=== PATIENT | male | born 1965 | race Hispanic/Latino ===

== ENCOUNTER 2019-07-30 17:49 | Observation (INO) | payer OTHER ==
[2019-07-30 21:28] LABS: Basophils # (Auto) 0.1 K/mm3 (0.0-0.1); Basophils % (Auto) 1.3 % (0.0-1.8); Eosinophils # (Auto) 0.1 K/mm3 (0.0-0.4); Eosinophils % (Auto) 0.9 % (0.0-4.3); Hematocrit 43.8 % (35.5-45.6); Hemoglobin 14.6 gm/dl (11.8-15.2); Lymphocytes # (Auto) 2.2 K/mm3 (1.2-5.4); Lymphocytes % (Auto) 21.8 % (13.4-35.0); Mean Corpuscular HGB Conc 33 % (32-34); Mean Corpuscular Volume 86 fl (84-94); Monocytes # (Auto) 0.5 K/mm3 (0.0-0.8); Monocytes % (Auto) 5.1 % (0.0-7.3); Platelet Count 247 K/mm3 (140-440); Red Blood Count 5.11 M/mm3 (3.65-5.03); Red Cell Distribution Width 14.5 % (13.2-15.2)
[2019-07-30 21:43] LABS: INR 0.97 (0.87-1.13)
[2019-07-30 21:44] LABS: Partial Thromboplastin Time 27.5 Sec. (24.2-36.6)
[2019-07-30 21:57] LABS: Alanine Aminotransferase 30 units/L (7-56); Albumin 4.7 g/dL (3.9-5); BUN/Creatinine Ratio 14; Blood Urea Nitrogen 11 mg/dL (9-20); Calcium 9.8 mg/dL (8.4-10.2); Hemolysis Index 11
--- NOTE | 2019-07-30 22:53 | XRay Report ---
CHEST 2 VIEWS INDICATION / CLINICAL INFORMATION: Chest Pain. COMPARISON: None available. FINDINGS: SUPPORT DEVICES: None. HEART / MEDIASTINUM: No significant abnormality. LUNGS / PLEURA: No significant pulmonary or pleural abnormality. No pneumothorax. ADDITIONAL FINDINGS: No significant additional findings. IMPRESSION: 1. No significant abnormality. Signer Name: Stephanie Miranda MD Signed: 07/30/2019 10:49 PM Workstation Name: [id number]
[2019-07-30] MEDS ORDERED: ONDANSETRON 4 MG/2 ML INJ IV ONE (23:14)
[2019-07-30] MEDS ORDERED: MORPHINE 4 MG/1 ML INJ IV ONE (23:14)
--- NOTE | 2019-07-30 23:14 | Emergency Department Report ---
ED General Adult HPI - General Chief complaint: Chest Pain Stated complaint: CHEST PAIN Time Seen by Provider: 07/30/19 20:49 Source: patient, EMS Mode of arrival: Stretcher Limitations: No Limitations - History of Present Illness Initial comments: The patient presents to the emergency department with a chief complaint of left- sided chest pain that started 3 hours prior to arrival. Patient describes the pain as a pressure-like sensation as if someone is sitting on his chest. Patient received nitro in route via EMS to no avail. Patient denies any shortness of breath. -: Sudden Location: chest Severity scale (0 -10): 8 Quality: other (pressure) Consistency: constant Improves with: none Worsens with: none Associated Symptoms: denies other symptoms Treatments Prior to Arrival: none - Related Data Allergies Allergy/AdvReac Type Severity Reaction Status Date / Time aspirin Allergy Hives Verified 07/30/19 20:04 Sulfa (Sulfonamide Allergy Hives Verified 07/30/19 20:04 Antibiotics) ED Review of Systems ROS: Stated complaint: CHEST PAIN Other details as noted in HPI Comment: All other systems reviewed and negative Constitutional: denies: chills, fever Eyes: denies: eye pain, eye discharge, vision change ENT: denies: ear pain, throat pain Respiratory: denies: cough, shortness of breath, wheezing Cardiovascular: chest pain. denies: palpitations Endocrine: no symptoms reported Gastrointestinal: denies: abdominal pain, nausea, diarrhea Genitourinary: denies: urgency, dysuria Musculoskeletal: denies: back pain, joint swelling, arthralgia Skin: denies: rash, lesions Neurological: denies: headache, weakness, paresthesias Psychiatric: denies: anxiety, depression Hematological/Lymphatic: denies: easy bleeding, easy bruising ED Past Medical Hx - Past Medical History Previous Medical History?: Yes Hx Hypertension: Yes Hx Diabetes: Yes Hx Headaches / Migraines: Yes (possibly) Hx Asthma: Yes - Surgical History Past Surgical History?: Yes Hx Cholecystectomy: Yes Additional Surgical History: Bilat shoulders - Social History Smoking Status: Never Smoker ED Physical Exam - General Limitations: No Limitations General appearance: alert, in no apparent distress - Head Head exam: Present: atraumatic, normocephalic - Eye Eye exam: Present: normal appearance, PERRL, EOMI - ENT ENT exam: Present: mucous membranes moist - Neck Neck exam: Present: normal inspection - Respiratory Respiratory exam: Present: normal lung sounds bilaterally. Absent: respiratory distress - Cardiovascular Cardiovascular Exam: Present: regular rate, normal rhythm. Absent: systolic murmur, diastolic murmur, rubs, gallop - GI/Abdominal GI/Abdominal exam: Present: soft, normal bowel sounds. Absent: distended, tenderness - Rectal Rectal exam: Present: deferred - Extremities Exam Extremities exam: Present: normal inspection - Back Exam Back exam: Present: normal inspection - Neurological Exam Neurological exam: Present: alert, oriented X3, CN II-XII intact. Absent: motor sensory deficit - Psychiatric Psychiatric exam: Present: normal affect, normal mood - Skin Skin exam: Present: warm, dry, intact, normal color. Absent: rash ED Course Vital Signs 07/30/19 07/30/19 07/30/19 19:34 20:06 21:00 Temperature 98.7 F Pulse Rate 66 67 69 Respiratory 20 15 17 Rate Blood Pressure 120/78 143/75 O2 Sat by Pulse 99 95 97 Oximetry 07/30/19 07/30/19 22:00 23:00 Temperature Pulse Rate 69 Respiratory 11 L Rate Blood Pressure 143/75 118/75 O2 Sat by Pulse 97 97 Oximetry ED Medical Decision Making - Lab Data Result diagrams: 07/30/19 21:09 07/30/19 21:09 Lab Results 07/30/19 07/30/19 07/30/19 Range/Units 21:09 21:09 21:09 WBC 10.1 (4.5-11.0) K/mm3 RBC 5.11 H (3.65-5.03) M/mm3 Hgb 14.6 (11.8-15.2) gm/dl Hct 43.8 (35.5-45.6) % MCV 86 (84-94) fl MCH 29 (28-32) pg MCHC 33 (32-34) % RDW 14.5 (13.2-15.2) % Plt Count 247 (140-440) K/mm3 Lymph % (Auto) 21.8 (13.4-35.0) % King[place]isher % (Auto) 5.1 (0.0-7.3) % Eos % (Auto) 0.9 (0.0-4.3) % Baso % (Auto) 1.3 (0.0-1.8) % Lymph # 2.2 (1.2-5.4) K/mm3 King[place]isher # 0.5 (0.0-0.8) K/mm3 Eos # 0.1 (0.0-0.4) K/mm3 Baso # 0.1 (0.0-0.1) K/mm3 Seg Neutrophils % 70.9 H (40.0-70.0) % Seg Neutrophils # 7.2 (1.8-7.7) K/mm3 PT 13.0 (12.2-14.9) Sec. INR 0.97 (0.87-1.13) APTT 27.5 (24.2-36.6) Sec. Sodium 139 (137-145) mmol/L Potassium 4.3 (3.6-5.0) mmol/L Chloride 100.6 (98-107) mmol/L Carbon Dioxide 21 L (22-30) mmol/L Anion Gap 22 mmol/L BUN 11 (9-20) mg/dL Creatinine 0.8 (0.8-1.5) mg/dL Estimated GFR > 60 ml/min BUN/Creatinine Ratio 14 % Glucose 118 H (75-100) mg/dL Calcium 9.8 (8.4-10.2) mg/dL Total Bilirubin 0.30 (0.1-1.2) mg/dL AST 19 (5-40) units/L ALT 30 (7-56) units/L Alkaline Phosphatase 69 (35-129) units/L Troponin T < 0.010 (0.00-0.029) ng/mL NT-Pro-B Natriuret Pep (0-900) pg/mL Total Protein 7.3 (6.3-8.2) g/dL Albumin 4.7 (3.9-5) g/dL Albumin/Globulin Ratio 1.8 % 07/30/19 Range/Units 21:09 WBC (4.5-11.0) K/mm3 RBC (3.65-5.03) M/mm3 Hgb (11.8-15.2) gm/dl Hct (35.5-45.6) % MCV (84-94) fl MCH (28-32) pg MCHC (32-34) % RDW (13.2-15.2) % Plt Count (140-440) K/mm3 Lymph % (Auto) (13.4-35.0) % King[place]isher % (Auto) (0.0-7.3) % Eos % (Auto) (0.0-4.3) % Baso % (Auto) (0.0-1.8) % Lymph # (1.2-5.4) K/mm3 King[place]isher # (0.0-0.8) K/mm3 Eos # (0.0-0.4) K/mm3 Baso # (0.0-0.1) K/mm3 Seg Neutrophils % (40.0-70.0) % Seg Neutrophils # (1.8-7.7) K/mm3 PT (12.2-14.9) Sec. INR (0.87-1.13) APTT (24.2-36.6) Sec. Sodium (137-145) mmol/L Potassium (3.6-5.0) mmol/L Chloride (98-107) mmol/L Carbon Dioxide (22-30) mmol/L Anion Gap mmol/L BUN (9-20) mg/dL Creatinine (0.8-1.5) mg/dL Estimated GFR ml/min BUN/Creatinine Ratio % Glucose (75-100) mg/dL Calcium (8.4-10.2) mg/dL Total Bilirubin (0.1-1.2) mg/dL AST (5-40) units/L ALT (7-56) units/L Alkaline Phosphatase (35-129) units/L Troponin T (0.00-0.029) ng/mL NT-Pro-B Natriuret Pep 60.65 (0-900) pg/mL Total Protein (6.3-8.2) g/dL Albumin (3.9-5) g/dL Albumin/Globulin Ratio % - EKG Data -: EKG Interpreted by Ar EKG shows normal: sinus rhythm Rate: normal - Medical Decision Making Received the patient's cath report from [facility] which was done on March 05, 2018 which shows a left main artery 0% occlusion, proximal left anterior descending artery is 0% occlusion, mid distal left anterior descending artery diagonal artery 0% occlusion, circumflex/obtuse marginal artery 0%, right coronary artery 0%, coronary dominance is right. Left ventricular EF is 50% Critical care attestation.: If time is entered above; I have spent that time in minutes in the direct care of this critically ill patient, excluding procedure time. ED Disposition Clinical Impression: Chest pain Disposition: 09 OP ADMIT IP TO THIS HOSP Is pt being admited?: Yes Does the pt Need Aspirin: Yes Condition: Fair Instructions: Chest Pain (ED) Referrals: MARGARET TERRAZAS MD [Primary Care Provider] - 3-5 Days
--- NOTE | 2019-07-30 23:40 | History and Physical Report ---
History of Present Illness History of present illness: 54-year-old man with a history of hypertension, diabetes, asthma, obesity comes emergency room with complaints of chest pain located in the epigastric area that started today. He describes the pain as sharp, pressure-like sensation, someone sitting on his chest that has been constant, intensity 5/10, radiating to the left arm, cannot identify exacerbating factor. Admits to nausea, shortness., No diaphoresis or palpitation Review Of Systems: Constitutional: no weight loss, fever, chills Ears, eyes, nose, mouth and throat: no nasal congestion, no nasal discharge, no sinus pressure, blurry vision, diplopia Neck: No neck pain or rigidity. Cardiovascular: No palpitations Respiratory: Nocough Gastrointestinal: No hematochezia Genitourinary : no dysuria, frequency Musculoskeletal: no muscle ache , joint pain Integumentary: no rash, no pruritis Neurological: no parathesias, focal weakness Endocrine: no cold or heat intolerance, no polyuria or polydipsia Hematologic/Lymphatic: no easy bruising, no easy bleeding, no gland swelling Allergic/Immunologic: no urticaria, no angioedema. PAST MEDICAL HISTORY: hypertension, diabetes, asthma, obesity PAST SURGICAL HISTORY: Cholecystectomy, bilateral shoulder SOCIAL HISTORY: Denies alcohol, tobacco, drugs FAMILY HISTORY: Hypertension Medications and Allergies Allergies Allergy/AdvReac Type Severity Reaction Status Date / Time aspirin Allergy Hives Verified 07/30/19 20:04 Sulfa (Sulfonamide Allergy Hives Verified 07/30/19 20:04 Antibiotics) Exam - Physical Exam Narrative exam: Gen. appearance: Patient lying in bed, no apparent distress HEENT: Normocephalic, atraumatic, pupils equally round and reactive to light, extraocular movement intact, and no sclericterus,. No JVD or thyromegaly or nodule,neck supple, no carotid bruit ,mucous membranes moist, no exudate or erythema Heart: S1, S2, regular rate and rhythm Lungs: Clear bilaterally, breathing comfortable Abdomen: Positive bowel sounds, nontender, nondistended, no organomegaly Extremity: no edema, cyanosis, clubbing Skin: No rash, nodules, warm, dry Neuro: speech is fluent, moves extremities, sensory intact - Constitutional Vitals: Temp Pulse Resp BP Pulse Ox 98.7 F 69 11 L 118/75 97 07/30/19 19:34 07/30/19 22:00 07/30/19 22:00 07/30/19 23:00 07/30/19 23:00 Results - Labs CBC & Chem 7: 07/30/19 21:09 07/30/19 21:09 Labs: Abnormal lab results 07/30/19 07/30/19 Range/Units 21:09 21:09 RBC 5.11 H (3.65-5.03) M/mm3 Seg Neutrophils % 70.9 H (40.0-70.0) % Carbon Dioxide 21 L (22-30) mmol/L Glucose 118 H (75-100) mg/dL - Imaging and Cardiology EKG: image reviewed Chest x-ray: report reviewed Abdominal x-ray: pending Assessment and Plan Assessment Chest pain, rule out ACS Check cardiac enzymes, obtain stress test Start Percocet Hypertension Continue outpatient medications, add IV hydralazine Diabetes Checks fingersticks, start sliding scale DVT prophylaxis
[2019-07-31] MEDS ORDERED: ONDANSETRON 4 MG/2 ML INJ ONE (00:27)
[2019-07-31] MEDS ORDERED: MORPHINE 4 MG/1 ML INJ ONE (00:27)
[2019-07-31] MEDS ORDERED: MORPHINE 2 MG/1 ML INJ IV PRN (01:02)
[2019-07-31] MEDS ORDERED: ACETAMINOPHEN 325 MG TAB PO PRN (01:02)
[2019-07-31] MEDS ORDERED: DEXTROSE 50% IN WATER (25GM) 50 ML SYRINGE IV PRN (01:02)
[2019-07-31] MEDS ORDERED: ONDANSETRON 4 MG/2 ML INJ IV PRN (01:02)
[2019-07-31] MEDS ORDERED: hydrALAZINE 20 MG/1 ML INJ IV PRN (01:07)
[2019-07-31 01:52] LABS: Creatine Kinase MB 2.6 ng/mL (0.0-4.0)
[2019-07-31 02:03] LABS: Amphetamine Screen,Urine PRESUMPTIVE NEGATIVE; Benzodiazepines Screen,Urine PRESUMPTIVE NEGATIVE; Cannabinoid Screen,Urine PRESUMPTIVE NEGATIVE; Cocaine Screen,Urine PRESUMPTIVE NEGATIVE; Methadone Screen,Urine PRESUMPTIVE NEGATIVE; Opiate Screen,Urine PRESUMPTIVE NEGATIVE
[2019-07-31 06:40] LABS: Basophils # (Auto) 0.1 K/mm3 (0.0-0.1); Basophils % (Auto) 0.6 % (0.0-1.8); Eosinophils # (Auto) 0.1 K/mm3 (0.0-0.4); Eosinophils % (Auto) 1.5 % (0.0-4.3); Hematocrit 41.8 % (35.5-45.6); Hemoglobin 13.9 gm/dl (11.8-15.2); Lymphocytes # (Auto) 2.5 K/mm3 (1.2-5.4); Lymphocytes % (Auto) 30.7 % (13.4-35.0); Mean Corpuscular HGB Conc 33 % (32-34); Mean Corpuscular Volume 87 fl (84-94); Monocytes # (Auto) 0.7 K/mm3 (0.0-0.8); Monocytes % (Auto) 8.2 % (0.0-7.3); Platelet Count 200 K/mm3 (140-440); Red Blood Count 4.83 M/mm3 (3.65-5.03)
[2019-07-31 06:55] LABS: Creatine Kinase MB 2.7 ng/mL (0.0-4.0)
[2019-07-31 06:56] LABS: BUN/Creatinine Ratio 12; Blood Urea Nitrogen 12 mg/dL (9-20); Calcium 9.3 mg/dL (8.4-10.2); Hemolysis Index 30
[2019-07-31] MEDS ORDERED: REGADENOSON 0.4 MG/5 ML INJ IV ONE ×2 (07:16→07:25)
[2019-07-31] MEDS: INSULIN LISPRO 100 UNIT/ML SUB-Q SCH ×2 (07:30→11:30)
[2019-07-31] MEDS ORDERED: ENOXAPARIN 40 MG/0.4 ML INJ SUB-Q SCH (10:00)
--- NOTE | 2019-07-31 10:29 | Progress Note ---
Assessment and Plan Assessment and plan: Chest pain, rule out ACS Check cardiac enzymes, obtain stress test Start Percocet Hypertension Continue outpatient medications, add IV hydralazine Diabetes Checks fingersticks, start sliding scale DVT prop Hospitalist Physical - Constitutional Vitals: Temp Pulse Resp BP Pulse Ox 96.6 F L 70 12 135/77 97 07/31/19 08:17 07/31/19 08:30 07/31/19 08:17 07/31/19 08:17 07/31/19 08:17 Results - Labs CBC & Chem 7: 07/31/19 05:48 07/31/19 05:48 Labs: Laboratory Last Values WBC 8.2 K/mm3 (4.5-11.0) 07/31/19 05:48 RBC 4.83 M/mm3 (3.65-5.03) 07/31/19 05:48 Hgb 13.9 gm/dl (11.8-15.2) 07/31/19 05:48 Hct 41.8 % (35.5-45.6) 07/31/19 05:48 MCV 87 fl (84-94) 07/31/19 05:48 MCH 29 pg (28-32) 07/31/19 05:48 MCHC 33 % (32-34) 07/31/19 05:48 RDW 15.0 % (13.2-15.2) 07/31/19 05:48 Plt Count 200 K/mm3 (140-440) 07/31/19 05:48 Lymph % (Auto) 30.7 % (13.4-35.0) 07/31/19 05:48 Grand % (Auto) 8.2 % (0.0-7.3) H 07/31/19 05:48 Eos % (Auto) 1.5 % (0.0-4.3) 07/31/19 05:48 Baso % (Auto) 0.6 % (0.0-1.8) 07/31/19 05:48 Lymph # 2.5 K/mm3 (1.2-5.4) 07/31/19 05:48 Grand # 0.7 K/mm3 (0.0-0.8) 07/31/19 05:48 Eos # 0.1 K/mm3 (0.0-0.4) 07/31/19 05:48 Baso # 0.1 K/mm3 (0.0-0.1) 07/31/19 05:48 Seg Neutrophils % 59.0 % (40.0-70.0) 07/31/19 05:48 Seg Neutrophils # 4.8 K/mm3 (1.8-7.7) 07/31/19 05:48 PT 13.0 Sec. (12.2-14.9) 07/30/19 21:09 INR 0.97 (0.87-1.13) 07/30/19 21:09 APTT 27.5 Sec. (24.2-36.6) 07/30/19 21:09 Sodium 138 mmol/L (137-145) 07/31/19 05:48 Potassium 4.4 mmol/L (3.6-5.0) 07/31/19 05:48 Chloride 99.7 mmol/L (98-107) 07/31/19 05:48 Carbon Dioxide 27 mmol/L (22-30) 07/31/19 05:48 Anion Gap 16 mmol/L 07/31/19 05:48 BUN 12 mg/dL (9-20) 07/31/19 05:48 Creatinine 1.0 mg/dL (0.8-1.5) 07/31/19 05:48 Estimated GFR > 60 ml/min 07/31/19 05:48 BUN/Creatinine Ratio 12 % 07/31/19 05:48 Glucose 113 mg/dL (75-100) H 07/31/19 05:48 Calcium 9.3 mg/dL (8.4-10.2) 07/31/19 05:48 Total Bilirubin 0.30 mg/dL (0.1-1.2) 07/30/19 21:09 AST 19 units/L (5-40) 07/30/19 21:09 ALT 30 units/L (7-56) 07/30/19 21:09 Alkaline Phosphatase 69 units/L (35-129) 07/30/19 21:09 Total Creatine Kinase 138 units/L (55-170) 07/31/19 05:48 CK-MB (CK-2) 2.7 ng/mL (0.0-4.0) 07/31/19 05:48 CK-MB (CK-2) Rel Index 1.9 (0-4) 07/31/19 05:48 Troponin T < 0.010 ng/mL (0.00-0.029) 07/31/19 05:48 NT-Pro-B Natriuret Pep 60.65 pg/mL (0-900) 07/30/19 21:09 Total Protein 7.3 g/dL (6.3-8.2) 07/30/19 21:09 Albumin 4.7 g/dL (3.9-5) 07/30/19 21:09 Albumin/Globulin Ratio 1.8 % 07/30/19 21:09 Urine Opiates Screen Presumptive negative 07/31/19 01:17 Urine Methadone Screen Presumptive negative 07/31/19 01:17 Ur Barbiturates Screen Presumptive positive 07/31/19 01:17 Ur Phencyclidine Scrn Presumptive negative 07/31/19 01:17 Ur Amphetamines Screen Presumptive negative 07/31/19 01:17 U Benzodiazepines Scrn Presumptive negative 07/31/19 01:17 Urine Cocaine Screen Presumptive negative 07/31/19 01:17 U Marijuana (THC) Screen Presumptive negative 07/31/19 01:17 Drugs of Abuse Note Disclamer 07/31/19 01:17 Mccarty/IV: Voiding Method Toilet IV Catheter Type [Right Hand] INT / Saline Lock Active Medications - Current Medications Current Medications: Generic Name Dose Route Start Last Admin Trade Name Freq PRN Reason Stop Dose Admin Acetaminophen 650 mg 07/31/19 01:02 Tylenol PO Q4H PRN Pain MILD(1-3)/Fever >100.5/POWELL Dextrose 0 ml 07/31/19 01:02 D50w (25gm) Syringe IV Q30MIN PRN Hypoglycemia Protocol Enoxaparin Sodium 40 mg 07/31/19 10:00 Enoxaparin SUB-Q QDAY GUERDA Hydralazine HCl 5 mg 07/31/19 01:07 Apresoline IV Q6H PRN Hypertension Insulin Human Lispro 0 unit 07/31/19 07:30 Humalog SUB-Q ACHS GUERDA Protocol Morphine Sulfate 2 mg 07/31/19 01:02 Morphine IV Q4H PRN Pain, Moderate (4-6) Ondansetron HCl 4 mg 07/31/19 01:02 Zofran IV Q8H PRN Nausea And Vomiting Sodium Chloride 10 ml 07/31/19 10:00 Sodium Chloride Flush Syringe 10 Ml IV BID GUERDA Sodium Chloride 10 ml 07/31/19 01:02 Sodium Chloride Flush Syringe 10 Ml IV PRN PRN LINE FLUSH
[2019-07-31 10:59] VITALS: BP 114/60
[2019-07-31] MEDS ORDERED: oxyCODONE /ACETAMINOPHEN 5-325MG TAB PO PRN (12:15)
--- NOTE | 2019-07-31 15:04 | Discharge Summary ---
Providers - Providers Date of Admission: 07/30/19 23:39 Date of discharge: 07/31/19 Attending physician: JANY YEH [facility] Reason for admission: Chest pain Condition: Fair Pertinent studies: Chest x-ray; no acute abnormality Procedures: Stress test; negative for ischemia, normal EF Hospital course: 54-year-old man with a history of hypertension, diabetes, asthma, obesity comes emergency room with complaints of chest pain located in the epigastric area that started today. He describes the pain as sharp, pressure-like sensation, someone sitting on his chest that has been constant, intensity 5/10, radiating to the left arm, cannot identify exacerbating factor. Admits to nausea, shortness., No diaphoresis or palpitation. Patient was admitted managed appropriately, serial cardiac enzymes x3- Blood pressures blood sugars closely monitored medications optimized Subsequently underwent stress test which was negative for ischemia Patient's chest pain probably noncardiac secondary to GERD Advised Protonix, follow-up with PMD and cardiology as needed Stable at discharge Discharge diagnosis; And management; --Atypical chest pain; probably noncardiac Stress test negative, symptoms improved Probably secondary to GERD --GERD; probably the cause of chest pain; stress test negative Recommend Protonix --Hypertension; moderate control Continue current antihypertensives and PRN medications --Type 2 diabetes mellitus; Accu-Chek sliding scale coverage ADA diet Continue metformin as before --Dyslipidemia; on statin Advised low-cholesterol diet --History of migraine headaches; patient follows with neurologist Continue home medications --History of depression; denies suicidal thoughts or ideation Continue Zoloft --Morbid obesity; BMI 47.3 Counseling done, advised dietary modification, exercise as tolerated And weight reduction when medically stable Patient is hemodynamically and clinically stable at discharge Disposition: DC-01 TO HOME OR SELFCARE Time spent for discharge: 32 min Core Measure Documentation - Palliative Care Palliative Care/ Comfort Measures: Not Applicable - Core Measures Any of the following diagnoses?: none Exam - Constitutional Vitals: Temp Pulse Resp BP Pulse Ox 96.6 F L 70 20 114/60 97 07/31/19 08:17 07/31/19 08:30 07/31/19 12:48 07/31/19 10:38 07/31/19 08:17 General appearance: Present: no acute distress, well-nourished - EENT Eyes: Present: PERRL, EOM intact - Neck Neck: Present: supple, normal ROM - Respiratory Respiratory effort: normal Respiratory: bilateral: diminished, negative: rales, rhonchi, wheezing - Cardiovascular Rhythm: regular Heart Sounds: Present: S1 & S2 - Extremities Extremities: no ischemia, No edema - Abdominal General gastrointestinal: Present: soft, non-tender, non-distended, normal bowel sounds - Integumentary Integumentary: Present: clear, warm - Musculoskeletal Musculoskeletal: strength equal bilaterally - Psychiatric Psychiatric: appropriate mood/affect, cooperative - Neurologic Neurologic: CNII-XII intact, moves all extremities Plan Activity: advance as tolerated Diet: diabetic Additional Instructions: If you continue to have intermittent chest pain or shortness of breath, contact MD or go to emergency room. You may need to see juan j dent beef tagger for further evaluation and management Follow up with: CARMENCITA [facility] MD BAKARI [Primary Care Provider] - 3-5 Days SHANTEL HARTMAN MD [Staff Physician] - 7 Days Prescriptions: Pantoprazole [Protonix] 40 mg PO QDAY #15 tablet
--- NOTE | 2019-07-31 15:57 | Treadmill Report ---
THALLIUM STRESS TEST REPORT LEFT VENTRICLE: Left ventricular chamber size is within normal limits. Perfusion study demonstrates somewhat heterogeneous uptake of the tracer in all segments, but no perfusion defects identified. Gated analysis demonstrates normal left ventricular systolic function with ejection fraction 60%. CONCLUSION: Suboptimal perfusion study, with no demonstrable ischemic coronary disease. Clinical correlation is recommended. JOB# [id number] CA/NTS
== END 2019-07-31 16:35 | disposition home or self-care (01) ==
LOC: ED 17:49 → 4A 23:39
PROVIDERS: ADMIT Internal Medicine; ATTEND Internal Medicine
DX: R07.89 Other chest pain (principal); I10 Essential (primary) hypertension; E11.9 Type 2 diabetes mellitus without complications; J45.909 Unspecified asthma, uncomplicated; E66.9 Obesity, unspecified; Z90.49 Acquired absence of other specified parts of digestive tract; Z98.890 Other specified postprocedural states
CPT/HCPCS: 36415; 71046; 78452; 80048; 80053; 80307; 82550; 82553; 83880; 84484; 85025; 85610; 85730; 93005; 93010; 93017; 96374; 96375; 99285; A9502; G0378; J1650; J2270; J2405; J2785